=== PATIENT | female | born 1970 | race Caucasian/White ===

== ENCOUNTER → 2017-04-25 | Outpatient (CLI) | payer BC ==
[~2017-04-25] MED LIST: REGADENOSON 0.4 MG/5 ML SYRINGE ONE
== END | disposition home or self-care (01) ==
LOC: CFH 09:18
PROVIDERS: ATTEND Internal Medicine Cardiovascular Disease
DX: R94.31 Abnormal electrocardiogram [ECG] [EKG] (principal); R00.2 Palpitations
CPT/HCPCS: 78452; 93017; 93306; A9502; J2785

== ENCOUNTER 2017-10-12 08:39 | Day surgery (SDC) | payer BC ==
[2017-10-10 10:40] LABS: BASOPHILS # (AUTO) 0.02 x10^3/uL (0-0.1); BASOPHILS % (AUTO) 1 % (0-1); EOSINOPHILS # (AUTO) 0.28 x10^3/uL (0-0.4); EOSINOPHILS % (AUTO) 6 % (1-7); LYMPHOCYTES # (AUTO) 1.27 x10^3/uL (1-3.4); LYMPHOCYTES % (AUTO) 27 % (22-44); MD NO; MEAN CORPUSCULAR HEMOGLOBIN 32.3 pg (27.0-34.8); MEAN CORPUSCULAR HGB CONC 34.6 g/dL (32.4-35.8); MEAN CORPUSCULAR VOLUME 93.4 fL (80-100); MEAN PLATELET VOLUME 7.7 fL (7.4-10.4); MONOCYTES # (AUTO) 0.36 x10^3/uL (0.2-0.8); MONOCYTES % (AUTO) 8 % (2-9); NEUTROPHILS # (AUTO) 2.72 x10^3/uL (1.8-6.8); NEUTROPHILS % (AUTO) 59 % (42-75); PLATELET COUNT 246 x10^3/uL (130-400); RED BLOOD COUNT 4.63 x10^6/uL (3.82-5.3); RED CELL DISTRIBUTION WIDTH 12.9 % (9.6-15.2)
[2017-10-10 10:53] LABS: ALBUMIN 3.9 g/dL (3.4-5.0); ANION GAP 6 mmol/L (5-15); CALCIUM 8.8 mg/dL (8.5-10.1); CHLORIDE 105 mmol/L (98-107)
[2017-10-10 11:00] LABS: ALANINE AMINOTRANSFERASE 30 U/L (12-78); ALKALINE PHOSPHATASE 56 U/L (45-117); BILIRUBIN,TOTAL 0.8 mg/dL (0.2-1.0); TOTAL PROTEIN 7.7 g/dL (6.4-8.2)
[~2017-10-12] VITALS: Ht 154.9 cm; Wt 48.5 kg
[~2017-10-12 08:39] MED LIST changes: +ALBU90AE INH; +AMIT10TA PO; +ASPI-496 PO; +CYAN1TAB29 PO; +FISH1CAP PO; -REGADENOSON 0.4 MG/5 ML SYRINGE ONE; +potassium chloride PO; +vitamin b-6 PO
[2017-10-12 09:03] VITALS: BP 101/68
[2017-10-12] MEDS ORDERED: LACTATED RINGERS 1,000 ML IV SCH (09:16)
[2017-10-12] MEDS ORDERED: LIDOCAINE-MPF 1%, 2ML ONE (09:19)
[2017-10-12] MEDS ORDERED: LIDOCAINE-MPF 1%, 2ML INFIL ONE (09:30)
[2017-10-12] MEDS ORDERED: LIDOCAINE/PF 1%, 30ML ONE (10:20)
[2017-10-12] MEDS ORDERED: EPINEPHRINE 1 MG/ML, 1ML ONE (10:20)
[2017-10-12] MEDS ORDERED: FLUORESCEIN SODIUM 500 MG/5 ML ONE (10:20)
[2017-10-12] MEDS ORDERED: THROMBIN 5,000 UNIT VIAL TP ONE (10:20)
[2017-10-12] MEDS ORDERED: NEOMY/POLYMYXIN B GU IRR. 1 ML IRRIG ONE (10:21)
[2017-10-12] MEDS ORDERED: FENTANYL PF 100 MCG/2ML ONE (10:25)
[2017-10-12] MEDS ORDERED: MIDAZOLAM 1 MG/ML, 2ML ONE (10:25)
[2017-10-12] MEDS ORDERED: ONDANSETRON 2MG/ML, 2ML IVPush PRN (10:30)
[2017-10-12] MEDS ORDERED: LABETALOL 5MG/ML, 20ML IV PRN (10:30)
[2017-10-12] MEDS ORDERED: HYDROmorphone 1 MG/ML, 1ML IV PRN (10:30)
[2017-10-12] MEDS ORDERED: FENTANYL PF 100 MCG/2ML IV PRN (10:30)
[2017-10-12] MEDS ORDERED: MEPERIDINE/PF 25MG/0.5ML IVPush PRN (10:30)
[2017-10-12] MEDS ORDERED: MIDAZOLAM 1 MG/ML, 2ML IV PRN (10:30)
[2017-10-12] MEDS ORDERED: LIDOCAINE 1%-EPI 1:100K, 30ML INFIL ONE (10:53)
[2017-10-12] MEDS ORDERED: LIDOCAINE-MPF 2% ,5ML ONE (11:13)
[2017-10-12] MEDS ORDERED: DEXAMETHASONE 4 MG/ML, 1ML ONE (11:13)
[2017-10-12] MEDS ORDERED: CEFAZOLIN 1,000 MG ONE (11:13)
[2017-10-12] MEDS ORDERED: METOCLOPRAMIDE 5 MG/ML, 2ML ONE (11:14)
[2017-10-12] MEDS ORDERED: ONDANSETRON 2MG/ML, 2ML ONE (11:14)
[2017-10-12] MEDS ORDERED: PROPOFOL 10 MG/ML, 20ML ONE (11:14)
[2017-10-12] MEDS ORDERED: OXYcodone 5 MG/5 ML ORAL.SOL UDC ONE (11:34)
[2017-10-12] MEDS: OXYcodone 5 MG/5 ML ORAL.SOL UDC PO PRN ×2 (11:35→15:44)
== END 2017-10-12 16:10 ==
LOC: OUT 08:39
PROVIDERS: ATTEND Obstetrics & Gynecology Gynecology
DX: N39.3 Stress incontinence (female) (male) (principal); Z30.432 Encounter for removal of intrauterine contraceptive device
CPT/HCPCS: 36415; 57288; 58301; 80053; 84703; 85025; C1771; J0171; J0690; J1100; J2250; J2405; J2704; J2765; J3010; J3490; J7120

== ENCOUNTER 2020-01-28 08:38 | Emergency (ER) | payer BC ==
[~2020-01-28] VITALS: Ht 154.9 cm; Wt 48.0 kg
[2020-01-28] MEDS ORDERED: HYDROcodone/APAP 5/325 TABLET ONE (08:58)
[2020-01-28] MEDS ORDERED: HYDROcodone/APAP 5/325 TABLET PO ONE (09:00)
--- NOTE | 2020-01-28 09:05 | NUR ---
PT SITTING UPRIGHT ON GURNEY ON CELL PHONE. BLANKET PROVIDED AND PT UP TO BATHROOM. PT DENIES ANY ADDITIONAL NEEDS AT THIS TIME, CALL LIGHT WITHIN REACH.
[2020-01-28 09:40] LABS: BASOPHILS # (AUTO) 0.02 x10^3/uL (0-0.1); BASOPHILS % (AUTO) 1 % (0-1); EOSINOPHILS # (AUTO) 0.06 x10^3/uL (0-0.4); EOSINOPHILS % (AUTO) 2 % (1-7); LYMPHOCYTES # (AUTO) 0.98 x10^3/uL (1-3.4); LYMPHOCYTES % (AUTO) 28 % (22-44); MD NO; MEAN CORPUSCULAR HEMOGLOBIN 31.7 pg (27.0-34.8); MEAN CORPUSCULAR HGB CONC 33.5 g/dL (32.4-35.8); MEAN PLATELET VOLUME 7.7 fL (7.4-10.4); MONOCYTES # (AUTO) 0.33 x10^3/uL (0.2-0.8); MONOCYTES % (AUTO) 10 % (2-9); NEUTROPHILS # (AUTO) 2.07 x10^3/uL (1.8-6.8); NEUTROPHILS % (AUTO) 60 % (42-75); PLATELET COUNT 254 x10^3/uL (130-400); RED CELL DISTRIBUTION WIDTH 13.2 % (9.6-15.2)
[2020-01-28 09:49] LABS: ALANINE AMINOTRANSFERASE 30 U/L (12-78); ALBUMIN 3.7 g/dL (3.4-5.0); ANION GAP 5 mmol/L (5-15); CALCIUM 9.3 mg/dL (8.5-10.1); CHLORIDE 110 mmol/L (98-107); CREATININE 0.69 mg/dL (0.55-1.02)
[2020-01-28 09:53] LABS: ALKALINE PHOSPHATASE 56 U/L (45-117); BILIRUBIN,TOTAL 0.5 mg/dL (0.2-1.0); TOTAL PROTEIN 7.7 g/dL (6.4-8.2); TROPONIN I < 0.015 ng/mL (0.000-0.045)
--- NOTE | 2020-01-28 10:02 | NUR ---
PT SUPINE IN BED. PT REPORTS NO CHANGE IN PAIN. HOB LOWERED TO PT COMFORT LEVEL, PT PROVIDED A BLANKET. PT DENIES ANY NEEDS AT THIS TIME, CALL LIGHT WITHIN REACH.
[2020-01-28] MEDS ORDERED: KETOROLAC 30 MG/1 ML ONE (10:27)
[2020-01-28] MEDS ORDERED: KETOROLAC 30 MG/1 ML IM ONE (10:30)
--- NOTE | 2020-01-28 11:10 | NUR ---
PT RETURNED TO ROOM FROM MRI
--- NOTE | 2020-01-28 11:15 | NUR ---
PT UPRIGHT ON GURNEY ON CELL PHONE. PT STATES PAIN HAS IMPROVED MINIMALLY. PT REPOSITIONED IN BED TO COMFORT. PT DENIES ANY OTHER NEEDS AT THIS TIME. CALL LIGHT WITHIN REACH.
[2020-01-28 12:18] VITALS: BP 113/65
--- NOTE | 2020-01-28 12:19 | NUR ---
Patient given discharge instructions and they have confirmed that they understand the instructions. Patient ambulatory with steady gait.
== END 2020-01-28 12:33 | disposition home or self-care (01) ==
LOC: ED 09:57
DX: M79.602 Pain in left arm (principal); M54.9 Dorsalgia, unspecified; R20.2 Paresthesia of skin; R07.89 Other chest pain; J45.909 Unspecified asthma, uncomplicated
CPT/HCPCS: 36415; 71045; 72141; 80053; 84484; 85025; 96372; 99285; J1885